=== PATIENT | female | born 1990 ===

== ENCOUNTER 2017-02-28 08:14 | Emergency (ER) | payer OTHER ==
[2017-02-28 08:56] VITALS: BMI 27.4
[2017-02-28 09:06] VITALS: BP 140/99; PULSE 79; RESP 18; TEMP 98.4; O2SAT 97
--- NOTE | 2017-02-28 09:27 | C.PDOC ---
History Of Present Illness 26 yr old female with no significant past medical history, presents to the ER requesting test. Patient reports LMP was December 19, but has not taken a home test. Patient also reports she tripped and fell 5 days ago, landing on her butt but denies any pain. Patient states today she woke up with lower abdominal cramping and when she went to the bathroom noticed some blood. Patient is c-sectionx2. Denies fever, chest pain, SOB, nausea, vomiting, diarrhea, dysuria, incontinence, vaginal discharge, weakness or numbness. Time Seen by Provider: 02/28/17 09:05 Chief Complaint (Nursing): Back Pain History Per: Patient History/Exam Limitations: no limitations Onset/Duration Of Symptoms: Sudden Onset (Since morning ) Quality Of Discomfort: Cramping Past Medical History Reviewed: Historical Data, Nursing Documentation, Vital Signs Vital Signs: Last Vital Signs Temp 98.4 F 02/28/17 08:56 Pulse 79 02/28/17 08:56 Resp 18 02/28/17 08:56 BP 140/99 H 02/28/17 08:56 Pulse Ox 97 02/28/17 09:49 - Medical History PMH: No Chronic Diseases Surgical History: Family History: States: No Known Family Hx - Social History Hx Alcohol Use: No Hx Substance Use: No - Immunization History Hx Tetanus Toxoid Vaccination: No Hx Influenza Vaccination: No Hx Pneumococcal Vaccination: No Review Of Systems Except As Marked, All Systems Reviewed And Found Negative. Constitutional: Negative for: Fever Cardiovascular: Negative for: Chest Pain Respiratory: Negative for: Shortness of Breath Gastrointestinal: Positive for: Abdominal Pain (Lower abdominal cramping ). Negative for: Nausea, Vomiting, Diarrhea Genitourinary: Negative for: Dysuria, Incontinence, Vaginal Discharge, Vaginal Bleeding Musculoskeletal: Negative for: Back Pain, Leg Pain Skin: Negative for: Bruising Neurological: Negative for: Weakness, Numbness Physical Exam - Physical Exam Appears: Non-toxic, No Acute Distress Skin: Warm, Dry, No Rash Head: Atraumatic, Normacephalic Eye(s): bilateral: Normal Inspection Oral Mucosa: Moist Neck: Normal, Normal ROM, Supple Chest: Symmetrical, No Tenderness Cardiovascular: Rhythm Regular, No Murmur Respiratory: Normal Breath Sounds, No Rales, No Rhonchi, No Wheezing Gastrointestinal/Abdominal: Normal Exam, Soft, No Tenderness, No Mass, No Distention, No Guarding, No Rebound Back: Normal Inspection, No Vertebral Tenderness, No Paraspinal Tenderness Extremity: Normal ROM, No Tenderness, No Deformity, No Swelling Neurological/Psych: Oriented x3, Normal Speech Gait: Steady ED Course And Treatment O2 Sat by Pulse Oximetry: 97 (RA ) Pulse Ox Interpretation: Normal Medical Decision Making Medical Decision Making: IMPRESSION: requests test. H.o fall few days ago but no tenderness on exam or limited ROM. PLAN: * HCG * Urinalysis PROGRESS NOTE: UA shows RBCs, and negative for . Explain result to patient and that bleeding is menses. recommend analgesics as needed and can follow up with gynecolgist in clinic. Disposition Counseled Patient/Family Regarding: Diagnosis, Need For Followup - Disposition Referrals: [facility] [Outside] [facility] [Outside] Disposition: HOME/ ROUTINE Disposition Time: 09:47 Condition: STABLE Additional Instructions: Swann prueba de embarazo fue negativa. El sangrado vaginal es probable que swann perodo menstrual Seguimiento en la clnica para itz evaluacin Instructions: Dysmenorrhea (ED) Forms: [employer] (Nepalese) Print Language: TANZANIAN - POA Present On Arrival: None - Clinical Impression Clinical Impression: Vaginal bleeding, abnormal, Negative test - PA / FRONT OFFICE MANAGER / Resident Statement MD/DO has reviewed & agrees with the documentation as recorded. - Scribe Statement The provider has reviewed the documentation as recorded by the Scribe Keeley Green All medical record entries made by the Scribe were at my direction and personally dictated by me. I have reviewed the chart and agree that the record accurately reflects my personal performance of the history, physical exam, medical decision making, and the department course for this patient. I have also personally directed, reviewed, and agree with the discharge instructions and disposition.
[2017-02-28 09:42] LABS: RBC URINE 142 /hpf (0-3); URINE BILIRUBIN NEGATIVE (NEGATIVE); URINE BLOOD 3+ (NEGATIVE); URINE COLOR Yellow (YELLOW); URINE GLUCOSE (UA) NORMAL (Normal); URINE KETONE NEGATIVE (NEGATIVE); URINE LEUKOCYTE ESTERASE NEG Leu/uL (Negative); URINE PROTEIN NEGATIVE (NEGATIVE); URINE UROBILINOGEN NORMAL mg/dL (0.2-1.0); WBC URINE 5 /hpf (0-5)
== END 2017-02-28 09:55 | disposition home or self-care (01) ==
LOC: C.ER 08:14
DX: N93.9 Abnormal uterine and vaginal bleeding, unspecified (principal); Z32.02 Encounter for pregnancy test, result negative

== ENCOUNTER 2018-02-24 17:38 | Emergency (ER) | payer OTHER ==
[2018-02-24 17:38] VITALS: BMI 27.4
[2018-02-24 17:47] VITALS: PULSE 84
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
[2018-02-24 18:45] VITALS: BP 122/84; RESP 14; TEMP 98.1; O2SAT 97
== END 2018-02-24 18:44 | disposition home or self-care (01) ==
LOC: C.ER 17:38
DX: S16.1XXA Strain of muscle, fascia and tendon at neck level, initial encounter (principal); Y08.89XA Assault by other specified means, initial encounter; Y92.89 Other specified places as the place of occurrence of the external cause